=== PATIENT | female | born 1935 | race American Indian/Alaskan Native ===

== ENCOUNTER 2017-11-26 12:49 | Inpatient (IN) | payer MEDICARE ==
--- NOTE | 2017-11-26 13:10 | C.PDOC ---
History Of Present Illness 82F c/o episodic epigastric/upper abd pain since 830am today. no exac or reliev fx. assoc w n/vx3. denies cp, sob, cough, fever, dysuria, diarrhea. psh sophia 20 years ago. Time Seen by Provider: 11/26/17 13:03 Chief Complaint (Nursing): Abdominal Pain Past Medical History Vital Signs: Last Vital Signs Temp 98.2 F 11/28/17 08:27 Pulse 56 L 11/28/17 08:27 Resp 20 11/28/17 08:27 BP 179/77 H 11/28/17 08:27 Pulse Ox 99 11/28/17 10:00 - Medical History PMH: Arthritis, HTN Denies: Chronic Kidney Disease Surgical History: Cholecystectomy - [facility] Procedures INJECT/INFUSE THROMBOLYTIC AGENT (03/30/14) Family History: States: Other Other Family History: nc - Social History Hx Tobacco Use: No Hx Alcohol Use: No Hx Substance Use: No - Immunization History Hx Tetanus Toxoid Vaccination: No Review Of Systems Except As Marked, All Systems Reviewed And Found Negative. Constitutional: Negative for: Fever, Chills Cardiovascular: Negative for: Chest Pain Respiratory: Negative for: Cough, Shortness of Breath Gastrointestinal: Positive for: Nausea, Vomiting, Abdominal Pain, Constipation. Negative for: Diarrhea Genitourinary: Negative for: Dysuria Neurological: Negative for: Weakness, Numbness, Headache Physical Exam - Physical Exam Appears: Well, Non-toxic, No Acute Distress Skin: Warm, Dry Head: Atraumatic Nose: No Epistaxis Oral Mucosa: Moist Cardiovascular: Rhythm Regular Respiratory: No Decreased Breath Sounds, No Accessory Muscle Use, No Rales, No Rhonchi, No Wheezing Gastrointestinal/Abdominal: Soft, Tenderness (epigastric), No Distention, No Guarding, No Rebound Extremity: No Swelling Pulses: Left Radial: Normal, Right Radial: Normal Neurological/Psych: Oriented x3, Other (no focal deficits) ED Course And Treatment - Laboratory Results Result Diagrams: 11/28/17 07:14 11/28/17 07:14 ECG Rhythm: Sinus Rhythm ( 63 bpm, normal axis normal interval,and no acute ischemia ) O2 Sat by Pulse Oximetry: 99 (RA) Disposition - Disposition Disposition: HOSPITALIZED Disposition Time: 15:10 Condition: STABLE - Clinical Impression Clinical Impression: SBO (small bowel obstruction)
[2017-11-26] MEDS ORDERED: Sodium Chloride 0.9% 1,000 ML IV ONE (13:26)
[2017-11-26 13:41] LABS: BASO % 0.3 % (0.0-2.0); EOS % 0.1 % (0.0-4.0); HEMOGLOBIN 10.7 g/dL (11.0-16.0); LYMPH # 0.7 K/uL (1.0-4.3); LYMPH % 10.1 % (20.0-40.0); MEAN CELL VOLUME 87.8 fL (81.0-99.0); MEAN CORPUSCULAR HEMOGLOBIN 29.4 pg (27.0-31.0); MEAN CORPUSCULAR HGB CONC 33.5 g/dL (33.0-37.0); MONO # 0.2 K/uL (0.0-0.8); MONO % 3.4 % (0.0-10.0); NEUT # 6.1 K/uL (1.8-7.0); NEUT % 86.1 % (50.0-75.0); RBC 3.65 Mil/uL (3.80-5.20); RED CELL DISTRIBUTION WIDTH 12.8 % (11.5-14.5); WHITE BLOOD COUNT 7.1 K/uL (4.8-10.8)
[2017-11-26 14:06] LABS: ALB/GLOB RATIO 0.9 (1.0-2.1); ALBUMIN 3.6 g/dL (3.5-5.0); ALT/SGPT 19 U/L (9-52); AST/SGOT 29 U/L (14-36); BLOOD UREA NITROGEN 16 mg/dL (7-17); CALCIUM 8.5 mg/dl (8.6-10.4); GFR AFRICAN-AMERICAN > 60; GFR NON-AFRICAN AMERICAN > 60; LIPASE 99 U/L (23-300)
[2017-11-26] MEDS ORDERED: Iodixanol 320 MG/ML 100 ML BOTTLE IV ONE (14:35)
--- NOTE | 2017-11-26 15:03 | CT ---
PROCEDURE: CT Abdomen and Pelvis with contrast HISTORY: abdominal pain COMPARISON: None available. TECHNIQUE: Contrast dose: 100 mL Visipaque IV Radiation dose: Total exam DLP = 261.74 mGy-cm. This CT exam was performed using one or more of the following dose reduction techniques: Automated exposure control, adjustment of the mA and/or kV according to patient size, and/or use of iterative reconstruction technique. FINDINGS: LOWER THORAX: No visible consolidation, pleural effusion, or pneumothorax. LIVER: Unremarkable. GALLBLADDER AND BILE DUCTS: Cholecystectomy. PANCREAS: Unremarkable. SPLEEN: Unremarkable. ADRENALS: Unremarkable. KIDNEYS AND URETERS: The kidneys enhance symmetrically. No hydronephrosis or obstructing calculus identified. VASCULATURE: No aortic aneurysm. BOWEL: Stomach is nondistended. Lack of oral contrast limits evaluation for bowel pathology. Mildly prominent fluid-filled loops of small bowel, in particular the ileum ; correlate clinically for enteritis. Developing or indeterminate obstruction it is considered less likely but not entirely excluded. Correlate clinically. Fluid within the colon may be seen in setting of diarrheal illness. Correlate clinically. APPENDIX: The appendix appears within normal limits of caliber. No secondary signs of acute appendicitis. PERITONEUM: No significant free fluid. No definite free air. LYMPH NODES: No bulky adenopathy identified. BLADDER: Unremarkable. REPRODUCTIVE: The uterus is present. BONES: Mild degenerative changes. OTHER FINDINGS: None. IMPRESSION: Mildly prominent fluid-filled loops of small bowel, in particular the ileum ; correlate clinically for enteritis. Developing or indeterminate obstruction it is considered less likely but not entirely excluded. Correlate clinically. Fluid within the colon may be seen in setting of diarrheal illness. Correlate clinically. Additional findings as above.
[2017-11-26] MEDS ORDERED: Ciprofloxacin 400mg/200ml D5W 400 MG/200 ML BAG IVPB STA (15:07)
[2017-11-26] MEDS ORDERED: metroNIDAZOLE IV 500 mg/100 ml 500 MG/100 ML BAG IVPB STA (15:07)
[2017-11-26] MEDS: Sodium Chloride 0.9% 1,000 ML IV SCH (15:15)
[2017-11-26 17:29] LABS: SQUAMOUS EPITHIAL 1 /hpf (0-5); URINE BILIRUBIN NEGATIVE (NEGATIVE); URINE BLOOD NEGATIVE (NEGATIVE); URINE CLARITY Clear (Clear); URINE COLOR Yellow (YELLOW); URINE GLUCOSE (UA) NORMAL (Normal); URINE LEUKOCYTE ESTERASE NEG Leu/uL (Negative); URINE NITRATE NEGATIVE (NEGATIVE); URINE PROTEIN NEGATIVE (NEGATIVE)
[2017-11-26 17:54] VITALS: RESP 20
--- NOTE | 2017-11-26 18:02 | CP.PCM.CON ---
History of Present Illness - History of Present Illness History of Present Illness: General Surgery Dr. Gorman 82 y/o F w/ PMHx of HTN, GERD, HLD presents to the ED c/o abd pain. Pain started around 830 this morning. Pt describes pain as intermittent, non- radiating, and sharp, localized to the upper abd. Pt denies having had this pain in the past. Pt admits to alternating constipation and diarrhea. Pt reports recent constipation for which she drank apple juice this morning. Pt admits to having hard BM ~1hr after ingesting apple juice. Pt also reports N/V x2 episodes NBNB. Pt denies F/C, melena, or hematochezia. Surgery consulted for enteritis vs SBO PMHx: see above Meds: reviewed in chart ALL: ASA PSHx: lap sophia SHx: denies tobacco, EtOH, drug use FHx: non-contributory Review of Systems - Review of Systems All systems: reviewed and no additional remarkable complaints except (see HPI) Past Patient History - Past Medical History & Family History Past Medical History?: Yes - Past Social History Smoking Status: Never Smoked - CARDIAC Hx Hypertension: Yes - PULMONARY Hx Respiratory Disorders: No - NEUROLOGICAL Hx Neurological Disorder: No - HEENT Hx Cataracts: Yes Hx Macular Degeneration: Yes - RENAL Hx Chronic Kidney Disease: No - ENDOCRINE/METABOLIC Hx Endocrine Disorders: No - HEMATOLOGICAL/ONCOLOGICAL Hx Blood Disorders: No - INTEGUMENTARY Hx Dermatological Problems: No - MUSCULOSKELETAL/RHEUMATOLOGICAL Hx Arthritis: Yes - GASTROINTESTINAL Hx Constipation: Yes - GENITOURINARY/GYNECOLOGICAL Hx Genitourinary Disorders: No - PSYCHIATRIC Hx Substance Use: No - SURGICAL HISTORY Hx Cholecystectomy: Yes - ANESTHESIA Hx Anesthesia: No Hx Anesthesia Reactions: No Hx Malignant Hyperthermia: No Meds Allergies/Adverse Reactions: Allergies Allergy/AdvReac Type Severity Reaction Status Date / Time aspirin Allergy Verified 11/26/17 12:56 - Medications Medications: Current Medications Sodium Chloride (Sodium Chloride 0.9%) 1,000 mls @ 100 mls/hr IV .Q10H [facility] Last Admin: 11/26/17 15:15 Dose: 100 mls/hr Physical Exam - Constitutional Appears: Non-toxic, No Acute Distress - Head Exam Head Exam: NORMAL INSPECTION - Eye Exam Eye Exam: Normal appearance - ENT Exam ENT Exam: Mucous Membranes Moist - Respiratory Exam Respiratory Exam: NORMAL BREATHING PATTERN. absent: Accessory Muscle Use, Respiratory Distress - GI/Abdominal Exam GI & Abdominal Exam: Soft. absent: Distended, Guarding, Rebound, Rigid - Extremities Exam Extremities exam: Positive for: normal inspection - Neurological Exam Neurological exam: Alert, Oriented x3 - Psychiatric Exam Psychiatric exam: Normal Affect, Normal Mood - Skin Skin Exam: Dry, Intact, Normal Color, Warm Results - Vital Signs Recent Vital Signs: Last Vital Signs Temp 98.1 F 11/26/17 17:54 Pulse 62 11/26/17 17:54 Resp 20 11/26/17 17:54 BP 128/79 11/26/17 17:54 Pulse Ox 98 11/26/17 17:54 - Labs Result Diagrams: 11/26/17 13:32 11/26/17 13:32 Labs: Laboratory Results - last 24 hr 11/26/17 11/26/17 11/26/17 13:32 13:32 17:19 WBC 7.1 RBC 3.65 L Hgb 10.7 L Hct 32.0 L MCV 87.8 D MCH 29.4 MCHC 33.5 RDW 12.8 Plt Count 154 MPV 11.0 Neut % (Auto) 86.1 H Lymph % (Auto) 10.1 L [place] % (Auto) 3.4 Eos % (Auto) 0.1 Baso % (Auto) 0.3 Neut # 6.1 Lymph # 0.7 L [place] # 0.2 Eos # 0.0 Baso # 0.0 Sodium 138 Potassium 4.5 Chloride 103 Carbon Dioxide 29 Anion Gap 10 BUN 16 Creatinine 0.8 Est GFR ( Amer) > 60 Est GFR (Non-Af Amer) > 60 Random Glucose 104 Calcium 8.5 L Total Bilirubin 0.5 AST 29 ALT 19 Alkaline Phosphatase 74 Troponin I < 0.0120 Total Protein 7.5 Albumin 3.6 Globulin 3.9 Albumin/Globulin Ratio 0.9 L Lipase 99 Urine Color Yellow Urine Clarity Clear Urine pH 6.0 Ur Specific [place] 1.060 H Urine Protein Negative Urine Glucose (UA) Normal Urine Ketones Negative Urine Blood Negative Urine Nitrate Negative Urine Bilirubin Negative Urine Urobilinogen 2.0 H Ur Leukocyte Esterase Neg Urine WBC (Auto) 1 Urine RBC (Auto) 1 Ur Squamous Epith Cells 1 - Imaging and Cardiology CT scan - abdomen Status: Image reviewed by me, Report reviewed by me Assessment & Plan - Assessment and Plan (Free Text) Assessment: 82 y/o F w/ abd pain likely 2/2 enteritis - IV ABX - monitor bowel fxn - CLD - pain management - anti-emetic - NGT if vomiting despite medication - cont conservative medical management Pt discussed w/ Dr. Sherif Díaz DO PGY2
[2017-11-26] MEDS: Potassium Ch 20mEq in D5-1/2NS 1,000 ML IV SCH (19:15)
[2017-11-26] MEDS: metroNIDAZOLE IV 500 mg/100 ml 500 MG/100 ML BAG IVPB SCH (21:04)
[2017-11-26] MEDS: Ciprofloxacin 400mg/200ml D5W 400 MG/200 ML BAG IVPB SCH (21:05)
[2017-11-27] MEDS: Sodium Chloride 0.9% 1,000 ML IV SCH ×2 (01:58→21:15)
[2017-11-27] MEDS: metroNIDAZOLE IV 500 mg/100 ml 500 MG/100 ML BAG IVPB SCH ×3 (05:13→21:30)
[2017-11-27] MEDS: Potassium Ch 20mEq in D5-1/2NS 1,000 ML IV SCH ×2 (05:17→14:14)
[2017-11-27] MEDS: Ciprofloxacin 400mg/200ml D5W 400 MG/200 ML BAG IVPB SCH ×3 (06:32→21:33)
[2017-11-27 07:38] LABS: BASO % 0.3 % (0.0-2.0); EOS # 0.1 K/uL (0.0-0.7); HEMOGLOBIN 9.6 g/dL (11.0-16.0); LYMPH # 1.5 K/uL (1.0-4.3); LYMPH % 24.9 % (20.0-40.0); MEAN CELL VOLUME 86.7 fL (81.0-99.0); MEAN CORPUSCULAR HEMOGLOBIN 29.6 pg (27.0-31.0); MEAN CORPUSCULAR HGB CONC 34.1 g/dL (33.0-37.0); MEAN PLATELET VOLUME 10.6 fL (7.2-11.7); MONO # 0.4 K/uL (0.0-0.8); MONO % 7.4 % (0.0-10.0); NEUT # 3.9 K/uL (1.8-7.0); NEUT % 66.4 % (50.0-75.0); RBC 3.23 Mil/uL (3.80-5.20); WHITE BLOOD COUNT 5.9 K/uL (4.8-10.8)
[2017-11-27 08:00] LABS: ALB/GLOB RATIO 0.9 (1.0-2.1); ALBUMIN 2.9 g/dL (3.5-5.0); ALT/SGPT 28 U/L (9-52); AST/SGOT 22 U/L (14-36); BLOOD UREA NITROGEN 8 mg/dL (7-17); CALCIUM 7.7 mg/dl (8.6-10.4); GFR AFRICAN-AMERICAN > 60; GFR NON-AFRICAN AMERICAN 60
--- NOTE | 2017-11-27 08:32 | CP.PCM.PN ---
Subjective - Date & Time of Evaluation Date of Evaluation: 11/27/17 Time of Evaluation: 08:11 - Subjective Subjective: General Surgery Dr. Gorman Pt S&E @bedside. NAEO. pain improved. reports1 episode nausea overnight relieved w/ Zofran. denies F/C, vomiting, D/C. tolerating CLD. (+)Flatus (-) BM Objective - Vital Signs/Intake and Output Vital Signs (last 24 hours): Temp Pulse Resp BP Pulse Ox 97.9 F 59 L 20 145/68 99 11/27/17 00:00 11/27/17 00:00 11/27/17 00:00 11/27/17 00:00 11/27/17 00:00 Intake and Output: 11/27/17 11/27/17 06:59 18:59 Intake Total 1300 Output Total 200 Balance 1100 - Medications Medications: Current Medications Enoxaparin Sodium (Lovenox) 40 mg SC DAILY [facility] Sodium Chloride (Sodium Chloride 0.9%) 1,000 mls @ 100 mls/hr IV .Q10H [facility] Last Admin: 11/27/17 01:58 Dose: Not Given Ciprofloxacin (Cipro 400mg/200ml Dsw) 400 mg in 200 mls @ 133 mls/hr IVPB Q8 [facility] Last Admin: 11/27/17 06:32 Dose: 133 mls/hr Potassium Chloride/Dextrose/Sod Cl (Potassium Chl 20 Meq In D5-1/2ns) 1,000 mls @ 100 mls/hr IV .Q10H [facility] Last Admin: 11/27/17 05:17 Dose: Not Given Metronidazole (Flagyl) 500 mg in 100 mls @ 100 mls/hr IVPB Q8 [facility] Last Admin: 11/27/17 05:13 Dose: 100 mls/hr Lisinopril (Zestril) 20 mg PO DAILY [facility] Morphine Sulfate (Morphine) 2 mg IVP Q4H PRN PRN Reason: Pain, moderate (4-7) Ondansetron HCl (Zofran Inj) 4 mg IVP Q4 PRN PRN Reason: Nausea/Vomiting Last Admin: 11/27/17 00:20 Dose: 4 mg Pantoprazole Sodium (Protonix Inj) 40 mg IVP DAILY [facility] Pneumococcal Polyvalent Vaccine (Pneumovax 23 Vaccine) 0.5 ml IM .ONCE ONE Stop: 11/28/17 10:01 - Labs Labs: 11/27/17 07:22 11/27/17 07:22 - Constitutional Appears: Non-toxic, No Acute Distress - Head Exam Head Exam: NORMAL INSPECTION - Eye Exam Eye Exam: Normal appearance - ENT Exam ENT Exam: Mucous Membranes Moist - Respiratory Exam Respiratory Exam: NORMAL BREATHING PATTERN. absent: Accessory Muscle Use, Respiratory Distress - GI/Abdominal Exam GI & Abdominal Exam: Soft. absent: Distended, Guarding, Tenderness, Rebound - Extremities Exam Extremities Exam: Normal Inspection - Neurological Exam Neurological Exam: Alert, Awake, Oriented x3 - Psychiatric Exam Psychiatric exam: Normal Affect, Normal Mood - Skin Skin Exam: Dry, Intact, Normal Color, Warm Assessment and Plan - Assessment and Plan (Free Text) Assessment: 82 y/o F w/ abd pain likely 2/2 enteritis - cont IV ABX - monitor bowel fxn - CLD - cont pain management - cont anti-emetic - encourage OOB to chair/Amb - cont conservative medical management - no surgical intervention at this time Pt discussed w/ Dr. Sherif Díaz DO PGY2
[2017-11-27] MEDS: Enoxaparin 40 mg Syringe SC SCH (09:45)
--- NOTE | 2017-11-27 22:22 | HP ---
HISTORY OF PRESENT ILLNESS: An 82-year-old -[place] female who was brought in with abdominal pain. The patient was seen in the ER, evaluated by ER physician as well as the surgeon. Finding of possible small bowel obstruction was entertained, possibility of enteritis. She was in usual state of health until 2 days before admission when she started to experience abdominal pain, nausea, vomiting, also had a constipation. Subsequently, she moved the bowel; however, nausea and vomiting continued and subsequently she was short of breath. Came to the emergency room and subsequently admitted. She has a longstanding history of hypertension, more than 10 years on Zestril 20 mg p.o. once a day. There is no history of diabetes, IN, heart failure. History of CVA in the past. PERSONAL HISTORY: Does not smoke. Does not drink. ALLERGIC: DENIES. SHE CANNOT TOLERATE ASPIRIN. 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 FAMILY HISTORY: Negative for premature coronary artery disease. Positive for hypertension. SOCIAL HISTORY: . Lives with her . REVIEW OF SYSTEMS: Generalized weakness is noted for the last few days. No fever. No chills. No urinary complaints. No chest pain. No shortness of breath up until the day of admission. No history of peptic ulcer disease. No bleeding disorders. No hematemesis. No melena. History of occasional joint pains. Takes Motrin. No history of visual disturbances. No history of depression. No hematuria. PHYSICAL EXAMINATION: GENERAL: Shows an elderly female, who is conscious, alert, well oriented, in no acute distress. VITAL SIGNS: She is 5 feet 5 inches and weighs 132 pounds. Her blood pressure is 160/70, heart rate of 68, regular, temperature of 98, O2 sat was 99% on room air. HEENT: Head is normocephalic. Eyes: No pallor, no icterus. NECK: Supple. LUNGS: Clear to auscultation bilaterally. HEART: PMI is not localized. S1 and S2 are normal. Soft holosystolic murmur in the mitral area. No gallops. ABDOMEN: Appears soft, nontender, nondistended. No organomegaly. EXTREMITIES: No cyanosis, clubbing or edema. Distal pulses are intact. NEUROLOGIC: Awake, alert, oriented x3. Mild weakness in the right hand, otherwise no focal sign. LABORATORY DATA: CBC is showing hemoglobin of 9.6 with a normal white count of 5.9, initial white count was 7.1. The rest of the CBC is unremarkable. Electrolytes are normal. BUN is 10, creatinine is normal 0.8. EKG, sinus rhythm in the normal limits. CT of the abdomen had shown possible ileus. Enteritis. Cannot rule out obstruction. ASSESSMENT: An 82-year-old female with a history of abdominal pain. Possible small bowel obstruction. Currently doing well with intravenous fluids. PLAN: At this point is to continue IV fluids, supportive care and surgical followup. Conservative treatment. Surgical intervention is unlikely. Care of plan was explained to the patient. I thank you. Jovani Gregory MD
[2017-11-28] MEDS: Potassium Ch 20mEq in D5-1/2NS 1,000 ML IV SCH ×2 (00:08→10:59)
[2017-11-28] MEDS: metroNIDAZOLE IV 500 mg/100 ml 500 MG/100 ML BAG IVPB SCH ×3 (05:17→21:23)
[2017-11-28] MEDS: Ciprofloxacin 400mg/200ml D5W 400 MG/200 ML BAG IVPB SCH ×3 (06:22→22:26)
[2017-11-28 07:18] LABS: BASO % 0.4 % (0.0-2.0); EOS # 0.1 K/uL (0.0-0.7); EOS % 2.2 % (0.0-4.0); LYMPH # 1.4 K/uL (1.0-4.3); LYMPH % 32.5 % (20.0-40.0); MEAN CELL VOLUME 87.9 fL (81.0-99.0); MEAN CORPUSCULAR HEMOGLOBIN 29.4 pg (27.0-31.0); MEAN CORPUSCULAR HGB CONC 33.5 g/dL (33.0-37.0); MEAN PLATELET VOLUME 10.1 fL (7.2-11.7); MONO # 0.4 K/uL (0.0-0.8); MONO % 9.8 % (0.0-10.0); NEUT # 2.4 K/uL (1.8-7.0); NEUT % 55.1 % (50.0-75.0); RBC 3.39 Mil/uL (3.80-5.20); RED CELL DISTRIBUTION WIDTH 12.9 % (11.5-14.5); WHITE BLOOD COUNT 4.5 K/uL (4.8-10.8)
[2017-11-28] MEDS: Sodium Chloride 0.9% 1,000 ML IV SCH (08:04)
[2017-11-28 08:07] LABS: ALB/GLOB RATIO 0.8 (1.0-2.1); ALBUMIN 2.9 g/dL (3.5-5.0); ALT/SGPT 16 U/L (9-52); AST/SGOT 21 U/L (14-36); BLOOD UREA NITROGEN 4 mg/dL (7-17); CALCIUM 7.9 mg/dl (8.6-10.4); GFR AFRICAN-AMERICAN > 60; GFR NON-AFRICAN AMERICAN 60
[2017-11-28] MEDS: Enoxaparin 40 mg Syringe SC SCH (10:00)
[2017-11-28] MEDS ORDERED: Influenza Vaccine 60 mcg/0.5 mL SYR (4YR UP) IM ONE (10:00)
[2017-11-28] MEDS ORDERED: Pneumococcal 23-Valent Vaccine IM ONE (10:00)
--- NOTE | 2017-11-28 11:02 | CP.PCM.PN ---
Subjective - Date & Time of Evaluation Date of Evaluation: 11/28/17 Time of Evaluation: 11:00 - Subjective Subjective: Surgery Pt s&e. Reports vomiting and diarrhea. Non bloody. ABd Pain controlled. Denies F /CP/SOB. + void. + amb. Objective - Vital Signs/Intake and Output Vital Signs (last 24 hours): Temp Pulse Resp BP Pulse Ox 98.2 F 56 L 20 179/77 H 99 11/28/17 08:27 11/28/17 08:27 11/28/17 08:27 11/28/17 08:27 11/28/17 08:27 Intake and Output: 11/28/17 11/28/17 06:59 18:59 Intake Total 800 Balance 800 - Medications Medications: Current Medications Acetaminophen (Tylenol 325mg Tab) 650 mg PO QID PRN PRN Reason: Pain, moderate (4-7) Enoxaparin Sodium (Lovenox) 40 mg SC DAILY [facility] Last Admin: 11/28/17 10:00 Dose: 40 mg Sodium Chloride (Sodium Chloride 0.9%) 1,000 mls @ 100 mls/hr IV .Q10H [facility] Last Admin: 11/28/17 08:04 Dose: Not Given Ciprofloxacin (Cipro 400mg/200ml Dsw) 400 mg in 200 mls @ 133 mls/hr IVPB Q8 [facility] Last Admin: 11/28/17 06:22 Dose: 133 mls/hr Potassium Chloride/Dextrose/Sod Cl (Potassium Chl 20 Meq In D5-1/2ns) 1,000 mls @ 100 mls/hr IV .Q10H [facility] Last Admin: 11/28/17 00:08 Dose: 100 mls/hr Metronidazole (Flagyl) 500 mg in 100 mls @ 100 mls/hr IVPB Q8 [facility] Last Admin: 11/28/17 05:17 Dose: 100 mls/hr Lisinopril (Zestril) 20 mg PO DAILY [facility] Last Admin: 11/28/17 09:59 Dose: 20 mg Morphine Sulfate (Morphine) 2 mg IVP Q4H PRN PRN Reason: Pain, moderate (4-7) Last Admin: 11/28/17 00:13 Dose: 2 mg Ondansetron HCl (Zofran Inj) 4 mg IVP Q4 PRN PRN Reason: Nausea/Vomiting Last Admin: 11/27/17 17:22 Dose: 4 mg Pantoprazole Sodium (Protonix Inj) 40 mg IVP DAILY [facility] Last Admin: 11/28/17 09:59 Dose: 40 mg - Labs Labs: 11/28/17 07:14 11/28/17 07:14 - Constitutional Appears: No Acute Distress - Head Exam Head Exam: ATRAUMATIC, NORMAL INSPECTION, NORMOCEPHALIC - Eye Exam Eye Exam: EOMI, Normal appearance, PERRL Pupil Exam: NORMAL ACCOMODATION, PERRL - ENT Exam ENT Exam: Mucous Membranes Moist, Normal Exam - Neck Exam Neck Exam: Full ROM, Normal Inspection. absent: Lymphadenopathy - Respiratory Exam Respiratory Exam: Clear to Ausculation Bilateral, NORMAL BREATHING PATTERN - Cardiovascular Exam Cardiovascular Exam: REGULAR RHYTHM, +S1, +S2. absent: Murmur - GI/Abdominal Exam GI & Abdominal Exam: Soft, Tenderness, Normal Bowel Sounds - Rectal Exam Rectal Exam: NORMAL INSPECTION - Exam Exam: NORMAL INSPECTION - Extremities Exam Extremities Exam: Full ROM, Normal Capillary Refill, Normal Inspection. absent : Joint Swelling, Pedal Edema - Back Exam Back Exam: NORMAL INSPECTION - Neurological Exam Neurological Exam: Alert, Awake, CN II-XII Intact, Normal Gait, Oriented x3 - Psychiatric Exam Psychiatric exam: Normal Affect, Normal Mood - Skin Skin Exam: Dry, Intact, Normal Color, Warm Assessment and Plan - Assessment and Plan (Free Text) Assessment: 82 y/o F w/ abd pain likely 2/2 enteritis - cont IVF - monitor bowel fxn -Advance diet as tolerated - cont pain management - cont anti-emetic - encourage OOB to chair/Amb - cont conservative medical management - no surgical intervention at this time Pt discussed w/ Dr. Gorman
--- NOTE | 2017-11-28 14:55 | CARD ---
APPROVED REPORT EKG Measurement Heart [id number] <Conclusion> Normal sinus rhythm Normal ECG
--- NOTE | 2017-11-28 17:13 | CP.PCM.PN ---
Subjective - Date & Time of Evaluation Date of Evaluation: 11/28/17 Time of Evaluation: 17:11 - Subjective Subjective: better.no n/v.bp noted. Objective - Vital Signs/Intake and Output Vital Signs (last 24 hours): Temp Pulse Resp BP Pulse Ox 97.7 F 60 20 155/73 H 99 11/28/17 15:15 11/28/17 15:15 11/28/17 15:15 11/28/17 15:15 11/28/17 15:15 Intake and Output: 11/28/17 11/28/17 06:59 18:59 Intake Total 800 1330 Balance 800 1330 - Medications Medications: Current Medications Acetaminophen (Tylenol 325mg Tab) 650 mg PO QID PRN PRN Reason: Pain, moderate (4-7) Enoxaparin Sodium (Lovenox) 40 mg SC DAILY [facility] Last Admin: 11/28/17 10:00 Dose: 40 mg Sodium Chloride (Sodium Chloride 0.9%) 1,000 mls @ 100 mls/hr IV .Q10H [facility] Last Admin: 11/28/17 08:04 Dose: Not Given Ciprofloxacin (Cipro 400mg/200ml Dsw) 400 mg in 200 mls @ 133 mls/hr IVPB Q8 [facility] Last Admin: 11/28/17 14:29 Dose: 133 mls/hr Potassium Chloride/Dextrose/Sod Cl (Potassium Chl 20 Meq In D5-1/2ns) 1,000 mls @ 100 mls/hr IV .Q10H [facility] Last Admin: 11/28/17 10:59 Dose: 100 mls/hr Metronidazole (Flagyl) 500 mg in 100 mls @ 100 mls/hr IVPB Q8 [facility] Last Admin: 11/28/17 13:28 Dose: 100 mls/hr Lisinopril (Zestril) 20 mg PO DAILY [facility] Last Admin: 11/28/17 09:59 Dose: 20 mg Morphine Sulfate (Morphine) 2 mg IVP Q4H PRN PRN Reason: Pain, moderate (4-7) Last Admin: 11/28/17 00:13 Dose: 2 mg Ondansetron HCl (Zofran Inj) 4 mg IVP Q4 PRN PRN Reason: Nausea/Vomiting Last Admin: 11/27/17 17:22 Dose: 4 mg Pantoprazole Sodium (Protonix Inj) 40 mg IVP DAILY [facility] Last Admin: 11/28/17 09:59 Dose: 40 mg - Labs Labs: 11/28/17 07:14 11/28/17 07:14 - Constitutional Appears: No Acute Distress - Eye Exam Eye Exam: Normal appearance - Neck Exam Neck Exam: Normal Inspection - Respiratory Exam Respiratory Exam: Clear to Ausculation Bilateral, NORMAL BREATHING PATTERN - Cardiovascular Exam Cardiovascular Exam: REGULAR RHYTHM, Murmur - GI/Abdominal Exam GI & Abdominal Exam: Soft - Extremities Exam Extremities Exam: absent: Pedal Edema - Neurological Exam Neurological Exam: Alert, Oriented x3 Assessment and Plan - Assessment and Plan (Free Text) Assessment: moving bowel.labs noted. will d/c iv.d/c am
[2017-11-29] MEDS: metroNIDAZOLE IV 500 mg/100 ml 500 MG/100 ML BAG IVPB SCH (05:00)
[2017-11-29] MEDS: Ciprofloxacin 400mg/200ml D5W 400 MG/200 ML BAG IVPB SCH (06:00)
[2017-11-29 07:52] VITALS: BP 153/82; PULSE 58; TEMP 97.7; O2SAT 98
[2017-11-29] MEDS: Enoxaparin 40 mg Syringe SC SCH (09:27)
--- NOTE | 2017-11-30 08:05 | DS ---
HISTORY OF PRESENT ILLNESS: An 82-year-old female with a history of hypertension, was brought in with abdominal pain, found to have possible intestinal obstruction, treated the enteritis with IV antibiotic. Surgical consultation was obtained with Dr. Gorman. CAT scan was done. With IV fluids and antibiotics, patient improved. She is stable now. We will discharge to be followed up as an outpatient in 1 week. FINAL DIAGNOSES: Hypertension, abdominal pain, possible small bowel obstruction, enteritis. DISCHARGE MEDICATION: Includes Cipro as an addition, 500 mg p.o. b.i.d. for 7 days. Jovani Gregory MD
== END 2017-11-29 13:18 | disposition home or self-care (01) | DRG 392 ==
LOC: C.ER 12:49 → C.9E 15:10 → C.3T 16:54 → OBSVTOIN 11-28 14:51
PROVIDERS: ADMIT Internal Medicine Cardiovascular Disease; ATTEND Internal Medicine Cardiovascular Disease
DX: K52.9 Noninfective gastroenteritis and colitis, unspecified (principal); I10 Essential (primary) hypertension; M19.90 Unspecified osteoarthritis, unspecified site; Z90.49 Acquired absence of other specified parts of digestive tract; Z86.73 Personal history of transient ischemic attack (TIA), and cerebral infarction without residual deficits